=== PATIENT | male | born 1975 | race Two or more races ===

== ENCOUNTER 2024-09-29 14:07 | Emergency (ER) | payer MEDICAID, SELFPAY ==
[2024-09-29 14:25] VITALS: BP 154/104; PULSE 84; RESP 19; TEMP 36.9; O2SAT 98; BMI 28.8
--- NOTE | 2024-09-29 14:25 | EDNOTE_ITS ---
Upper Extremity Injury RME/HPI General Chief Complaint: Extremity Injury, Upper Stated Complaint: right shoulder pain s/p fall yest. Time Seen by Provider: 09/29/24 14:18 Source: patient, RN notes reviewed and old records reviewed Arrival date/time: 09/29/24 14:07 Mode of arrival: ambulatory Limitations: no limitations RME / HPI RME / HPI narrative: 49yom presents to ED for shoulder pain s/p injury yesterday. Patient states he fell out of tree and landed on right shoulder. Denies head injury. No deformity, neck/back pain or joint swelling reported. No medications or treatments since injury. Related Data Previous Rx's ?Medication ?Instructions ?Recorded ciprofloxacin HCl 0.3 % eye drops See Rx Instructions ophthalmic 09/11/21 (eye) .COMPLEX #10 mL acetaminophen 500 mg tablet 1,000 mg (2 x 500 mg) PO Q6H PRN 09/29/24 (Tylenol Extra Strength) pain #30 tabs ibuprofen 600 mg tablet 600 mg PO Q6H PRN pain #30 tabs 09/29/24 lidocaine 5 % topical patch 1 patch topical QDAY #6 ea 09/29/24 methocarbamol 500 mg tablet 1,000 mg (2 x 500 mg) PO Q6H PRN 09/29/24 pain #30 tabs Allergies Allergy/AdvReac Type Severity Reaction Status Date / Time No Known Allergies Allergy Verified 09/29/24 14:10 Review of Systems Review of Systems Systems Reviewed: All systems reviewed, normal except as documented Constitutional Constitutional: Denies headache(s) ENT Ears, Nose, Mouth, and Throat: Denies headache(s) and Denies neck pain Cardiovascular Cardiovascular: Denies chest pain and Denies dyspnea Respiratory Respiratory: Denies dyspnea Musculoskeletal Musculoskeletal: Reports arthralgias, Denies back pain, Denies deformity, Denies joint swelling, Reports limited range of motion, Denies neck pain, Denies numbness and Denies tingling Neurologic Neurologic: Denies headache(s), Denies numbness and Denies tingling Past Medical History Surgical History OTHER SURGICAL HX: Denies past surgical history Social History SMOKING STATUS: Current every day smoker SUBSTANCE USE: does not use ALCOHOL: Current (Social) Past Medical History Comments PMH COMMENT: Denies past medical history ED Exam General Limitations: Present no limitations General appearance: Present alert and in no apparent distress Head Head exam: Present atraumatic and normocephalic Eye Eye exam: Present normal appearance, PERRL and EOMI ENT ENT exam: Present normal exam and mucous membranes moist Neck Neck exam: Present normal inspection and full ROM; Absent tenderness Chest Chest inspection: Present normal inspection and symmetric chest wall rise; Absent tenderness Respiratory Respiratory exam: Present normal lung sounds bilaterally; Absent respiratory distress Cardiovascular Cardiovascular exam: Present regular rate and normal rhythm Extremities Exam Extremities exam: Present other (Mild tenderness to right posterior shoulder. Limited ROM 2/2 pain. 2+ radial pulses, sensation intact. 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) Back Exam Back exam: Present normal inspection; Absent paraspinal tenderness or vertebral tenderness Neurological Exam Neurological exam: Present alert and oriented X3 Psychiatric Psychiatric exam: Present normal affect and normal mood Skin Skin exam: Present warm, dry, intact and normal color Course Quality Measures none Orders Category Date Time Status XR shoulder RT min 2V Stat Exams 09/29/24 14:25 Completed Acetaminophen Tab [Tylenol ES Tab] Med 09/29/24 14:25 Discontinued 1,000 mg PO X1 ONE Ibuprofen Tab [Motrin Tab] Med 09/29/24 14:25 Discontinued 600 mg PO X1 ONE Vital Signs Vital signs: Vital Signs Temperature 98.4 F 09/29/24 14:25 Pulse Rate 84 09/29/24 14:25 Respiratory Rate 19 09/29/24 14:25 Blood Pressure 154/104 H 09/29/24 14:25 Pulse Oximetry (%) 98 09/29/24 14:25 Oxygen Delivery Method Room Air 09/29/24 14:25 Extremity Injury MDM Narrative MDM Narrative:: 49yom presents to ED for shoulder pain s/p injury yesterday. Patient states he fell out of tree and landed on right shoulder. Denies head injury. No deformity, neck/back pain or joint swelling reported. No medications or treatments since injury. Xrays negative. Patient is neurovascularly intact. Encouraged RICE therapy, motrin/tylenol prn pain. Stable for dc, RTED precautions given. Patient data External records reviewed:: [facility] previous records (02/03/2022 ED visit for atypical chest pain) Clinical information provided by:: patient Social determinants that could affect healthcare access:: none Patient has the following chronic illnesses:: None How is presenting disease/condition affected by chronic disease/condition?: no chronic disease Evaluation data The following diagnostics were reviewed and interpreted by me:: radiology exam(s) Lab and/or radiology exams considered but not ordered:: None Interpretation Summary: Shoulder x-rays: No fracture or dislocation per my read Medications / Prescriptions Medications or Prescriptions considered but not ordered:: None Medication administrations:: Medication Administration History Discontinued Medications Acetaminophen (Acetaminophen 500 Mg Tablet) 1,000 mg PO X1 ONE Stop: 09/29/24 14:26 Last Admin: 09/29/24 14:40 Dose: 1,000 mg Documented By: Ibuprofen (Ibuprofen Tab 600 Mg Tablet) 600 mg PO X1 ONE Stop: 09/29/24 14:26 Last Admin: 09/29/24 14:41 Dose: 600 mg Documented By: Above medications administered in the ED Consultations Consultation(s) initiated? (list below): No Diagnosis Upper Extremity Injury Differential Diagnosis: other (Fracture, dislocation, sprain, strain, contusion, MSK pain) Most likely diagnosis given after review of the tests above:: Right shoulder sprain/contusion Admission Indicated Admission indicated?: not indicated Admission Request Was there a request for admission?: No Disposition Plan Disposition Plan: Discharge Discharge Attestation Discharge Attestation: The patient and all family members were given an opportunity to ask questions and understood the discharge instructions. Discharge instructions specifically effects, indications for sooner follow up or return to the emergency department, and the expected course of current diagnosis. Patient condition: Stable Discharge Plan Plan Patient Disposition: HOME (Self Care) Patient condition on transfer: Stable Prescriptions/Referrals Prescriptions/Med Rec: New ibuprofen 600 mg tablet 600 mg PO Q6H PRN (Reason: pain) Qty: 30 0RF acetaminophen [Tylenol Extra Strength] 500 mg tablet 1,000 mg PO Q6H PRN (Reason: pain) Qty: 30 0RF lidocaine 5 % adhesive patch,medicated 1 patch topical QDAY Qty: 6 0RF Rx Instructions: leave on most painful area for up to 12 hrs methocarbamol 500 mg tablet 1,000 mg PO Q6H PRN (Reason: pain) Qty: 30 0RF No Action ciprofloxacin HCl 0.3 % drops See Rx Instructions .ROUTE .COMPLEX Qty: 10 0RF Rx Instructions: put 1-2 drps in affected eye(s) every 2hr up to 8 times/day x2days; then 4 times/day x5days Referrals: Cole Moreau MD [Primary Care Provider] - In 1 week Problem List Clinical Impression: Contusion of right shoulder Patient/Caregiver Discharge Instructions Education Materials: ED Shoulder Contusion Print Language: Japanese Stand Alone Forms: Ramona Award Info., Patient Portal Info Letter PA/DIGITAL DIRECTOR Supervising Physician PA/DIGITAL DIRECTOR Supervising Physician: Gianna
--- NOTE | 2024-09-29 14:25 | XR_ITS ---
Examination: Shoulder,right, 3 views Technique: Shoulder AP internal rotation, AP external rotation, Y view shoulder, 3 views Exam date and time :September 29, 2024 1633 hrs. Indications: Injury to the shoulder today, shoulder pain. Findings: No shoulder fracture or dislocation No AC joint separation Impression: No shoulder fracture or dislocation
[2024-09-29] MEDS: ACETAMINOPHEN 500 MG TABLET 1000 MG PO (14:40)
[2024-09-29] MEDS: IBUPROFEN TAB 600 MG TABLET PO (14:41)
== END 2024-09-29 16:35 | disposition home or self-care (01) ==
PROVIDERS: Emergency Provider Emergency Medicine; PCP Family Medicine
DX: S40.011A Contusion of right shoulder, initial encounter (principal); W14.XXXA Fall from tree, initial encounter
CPT/HCPCS: 73030; 99283; A9270

== ENCOUNTER → 2024-11-13 | Outpatient (CLI) | payer MEDICAID, SELFPAY ==
--- NOTE | 2024-11-13 09:30 | XR_ITS ---
MRI shoulder, right, without contrast. Date and time: November 13, 2024 at 0950 hours INDICATIONS: Patient fell from a tree 2 months ago with injury to the shoulder, shoulder pain weakness in the right hand joint clicking Technique: Multiple axial, sagittal and coronal sections of the shoulder have been obtained. Siemens high-resolution 1.5 [employer] MRI scanner is utilized. Axial fat-suppressed sections, TR 2350, TE 18 T2-weighted coronal fat-saturated images, TR 3500, TE 7100 T1-weighted coronal images, TR 500, TE 15 T2-weighted sagittal fat-saturated images, TR 3500, TE 57 T1-weighted sagittal sections, TR 504, TE 13. Findings: 4 cm full-thickness rotator cuff tear Subscapularis insertion is intact. Subscapularis bursa is not seen. Long head of the biceps is in the bicipital groove. No definite tear of the biceps superior labral anchor is seen. Retraction of the musculotendinous junction of the rotator cuff is evident. Tendinosis pattern is moderate. Distance between the acromium and humeral head is 7 mm Atrophy of the supraspinatus muscle is moderate to severe. Atrophy of the infraspinatus muscle is moderate. Sagittal sections demonstrate a horizontal acromion. Acromioclavicular joint demonstrates mild osteoarthritis . Osacromiale is not identified. Fraying and irregularity anterior superior labral margins. Bony glenoid fossa on the sagittal sections does not demonstrate osseous defect. Occult fracture or area of avascular necrosis is not seen. Acromioclavicular joint separation is not visible. Defect in the posterolateral margin of the humeral head is not seen Impression: Large full-thickness rotator cuff tear Fraying and irregularity anterior superior labral margins
== END | disposition home or self-care (01) ==
LOC: SMRI 09:11
DX: S46.011A Strain of muscle(s) and tendon(s) of the rotator cuff of right shoulder, initial encounter (principal); W14.XXXA Fall from tree, initial encounter; M25.811 Other specified joint disorders, right shoulder
CPT/HCPCS: 73221